=== PATIENT | female | born 1985 | race Caucasian/White ===

== ENCOUNTER 2023-07-12 18:13 | Emergency (ER) | payer OTHER ==
[2023-07-12 18:43] VITALS: BP 130/72; PULSE 79; RESP 18; TEMP 97.9; BMI 23.1
[2023-07-12] MEDS ORDERED: NAPROXEN 500 MG TABLET ONE (20:24)
[2023-07-12] MEDS: NAPROXEN 500 MG TABLET PO ONE (20:25)
== END 2023-07-12 20:34 | disposition home or self-care (01) ==
LOC: FER 18:13
DX: M79.642 Pain in left hand (principal)
CPT/HCPCS: 99283-25